=== PATIENT | female | born 1970 | race Caucasian/White ===

== ENCOUNTER 2019-03-09 09:21 | Day surgery (SDC) | payer OTHER ==
[~2019-03-09] VITALS: Ht 167.6 cm; Wt 91.6 kg
[2019-03-09] MEDS ORDERED: methylPREDNISolone ACETATE 40 MG/ML IM ONE (09:22)
[2019-03-09] MEDS ORDERED: BUPIVACAINE /PF 0.25% 30 ML VIAL INJ ONE (09:22)
[2019-03-09] MEDS ORDERED: LIDOCAINE 2%, 20 ML MDV INJ ONE (09:22)
[2019-03-09] MEDS ORDERED: MIDAZOLAM HCL 5 MG/5 ML VIAL ONE ×2 (09:50→09:51)
[2019-03-09] MEDS ORDERED: DIPHENHYDRAMINE INJ 50 MG/ML VIAL ONE (09:50)
[2019-03-09 11:10] VITALS: BP_SYST 114
== END 2019-03-09 11:50 | disposition home or self-care (01) ==
LOC: SDS 09:21 → SMU 09:37 → SDS 11:50
PROVIDERS: ATTEND Internal Medicine
DX: M51.16 Intervertebral disc disorders with radiculopathy, lumbar region (principal); M19.90 Unspecified osteoarthritis, unspecified site; M81.0 Age-related osteoporosis without current pathological fracture; E03.9 Hypothyroidism, unspecified; M47.812 Spondylosis without myelopathy or radiculopathy, cervical region; G89.4 Chronic pain syndrome; Z79.899 Other long term (current) drug therapy; Z82.49 Family history of ischemic heart disease and other diseases of the circulatory system
CPT/HCPCS: 76000; J1030; J1200; J2001; J2250; J3490

== ENCOUNTER 2019-06-29 09:40 | Day surgery (SDC) | payer OTHER ==
[~2019-06-29] VITALS: Ht 162.6 cm; Wt 80.3 kg
[~2019-06-29 09:40] MED LIST: BUPIVACAINE /PF 0.25% 30 ML VIAL INJ ONE; IOHEXOL 300 mgI/mL, 50 mL INFUS..BTL IV ONE; LIDOCAINE 2%, 20 ML MDV ONE; methylPREDNISolone ACETATE 40 MG/ML ONE
[2019-06-29] MEDS ORDERED: MIDAZOLAM HCL 5 MG/5 ML VIAL ONE (11:04)
[2019-06-29] MEDS ORDERED: DIPHENHYDRAMINE INJ 50 MG/ML VIAL ONE (11:04)
[2019-06-29 15:20] VITALS: BP_SYST 130
== END 2019-06-29 12:00 | disposition home or self-care (01) ==
LOC: SMU 09:40 → SDS 09:40
PROVIDERS: ATTEND Internal Medicine
DX: M51.9 Unspecified thoracic, thoracolumbar and lumbosacral intervertebral disc disorder (principal); M47.812 Spondylosis without myelopathy or radiculopathy, cervical region; M54.5 Low back pain; M54.2 Cervicalgia; M51.16 Intervertebral disc disorders with radiculopathy, lumbar region; G89.4 Chronic pain syndrome; M81.0 Age-related osteoporosis without current pathological fracture; E03.9 Hypothyroidism, unspecified; M19.90 Unspecified osteoarthritis, unspecified site; Z98.51 Tubal ligation status; Z82.49 Family history of ischemic heart disease and other diseases of the circulatory system; Z83.3 Family history of diabetes mellitus; Z79.899 Other long term (current) drug therapy
CPT/HCPCS: 62323; J1030; J2001; J2250; J3490; J7120; Q9967; 76000; J1200